=== PATIENT | male | born 1930 | race Caucasian/White ===

== ENCOUNTER 2016-05-07 03:02 | Inpatient (IN) | payer MEDICARE | END 2016-05-11 02:04 | disposition E | DRG 64 | DX: I63.9 Cerebral infarction, unspecified (principal); J69.0 Pneumonitis due to inhalation of food and vomit; J96.01 Acute respiratory failure with hypoxia; E11.22 Type 2 diabetes mellitus with diabetic chronic kidney disease; G81.91 Hemiplegia, unspecified affecting right dominant side; I48.2 Chronic atrial fibrillation; I50.9 Heart failure, unspecified; I13.0 Hypertensive heart and chronic kidney disease with heart failure and stage 1 through stage 4 chronic kidney disease, or unspecified chronic kidney disease; N13.8 Other obstructive and reflux uropathy; R47.01 Aphasia; N39.0 Urinary tract infection, site not specified; Z51.5 Encounter for palliative care; H53.40 Unspecified visual field defects; N40.1 Benign prostatic hyperplasia with lower urinary tract symptoms; G30.9 Alzheimer's disease, unspecified; R13.10 Dysphagia, unspecified; F03.90 Unspecified dementia, unspecified severity, without behavioral disturbance, psychotic disturbance, mood disturbance, and anxiety; M19.90 Unspecified osteoarthritis, unspecified site; F02.80 Dementia in other diseases classified elsewhere, unspecified severity, without behavioral disturbance, psychotic disturbance, mood disturbance, and anxiety; I25.10 Atherosclerotic heart disease of native coronary artery without angina pectoris; J44.9 Chronic obstructive pulmonary disease, unspecified; E78.5 Hyperlipidemia, unspecified; N18.3 Chronic kidney disease, stage 3 (moderate); H91.90 Unspecified hearing loss, unspecified ear; I25.2 Old myocardial infarction; Z95.1 Presence of aortocoronary bypass graft; Z85.46 Personal history of malignant neoplasm of prostate; Z66 Do not resuscitate ==